=== PATIENT | male | born 1985 | race Caucasian/White ===

== ENCOUNTER 2022-09-18 11:42 | Outpatient (CLI) | payer MEDICAID, SELFPAY | END 2022-09-18 11:43 | disposition home or self-care (01) | LOC: AMB 09-26 03:55 | PROVIDERS: Visit Provider Emergency Medicine | DX: J68.9 Unspecified respiratory condition due to chemicals, gases, fumes and vapors (principal) ==

== ENCOUNTER 2022-11-20 11:25 | Outpatient (CLI) | payer MEDICAID, SELFPAY | END 2022-11-20 11:26 | disposition home or self-care (01) | LOC: AMB 11-21 03:03 | PROVIDERS: Visit Provider Family Medicine | DX: G40.909 Epilepsy, unspecified, not intractable, without status epilepticus (principal) | CPT/HCPCS: A0425; A0427 ==

== ENCOUNTER 2022-11-20 11:44 | Emergency (ER) | payer MEDICAID, SELFPAY ==
[2022-11-20 11:54] VITALS: BP 115/81; PULSE 96; TEMP 37; O2SAT 97; BMI 24.9
--- NOTE | 2022-11-20 12:00 | ED_ITS ---
HPI - Seizure General Time Seen by Provider: 12:00 Date Seen: 11/20/22 Chief Complaint: Seizure Stated Complaint: Possible seizure Time Seen by Provider: 11/20/22 12:00 Source: patient, EMS and RN notes reviewed Mode of arrival: EMS Limitations: no limitations History of Present Illness HPI Narrative: Patient is a 37-year-old male brought in by ambulance for auras, prodromal seizure. He did not actually have a seizure. He went biking this morning for about an hour and then went for a walk. He last took Keppra on Monday, has been out of it since Monday. He has a known seizure disorder, has taking Keppra in the past. He states that he was in [facility] 3 days this past week because he missed a court date on Monday. He turned himself in on Monday, they gave him a 3 day supply of Keppra. He was released and Monday was the last of that supply. He states he was at [facility] it is in in a coma for 10 days and Keppra was stopped then? ? He has not been ill with anything. He did not actually have a seizure. He started noting halos and foggy vision which is an aura for him. He also gets a metallic taste which he had. He is not having those now. He called EMS when he had the aura. He did not get any medication from EMS per his report. MD complaint: feels seizure coming on Trauma: No Seizure History: Yes Related Data Home Medications Medication Instructions Recorded Confirmed diazepam 5 mg/mL oral concentrate 50 mg PO PRN 11/20/22 11/20/22 (Diazepam Intensol) Previous Rx's Medication Instructions Recorded levetiracetam 1,000 mg tablet 1,000 mg PO BID #60 tabs 11/20/22 (Keppra) Allergies Allergy/AdvReac Type Severity Reaction Status Date / Time clindamycin Allergy Unknown Verified 11/20/22 11:58 Review of Systems Status of ROS: Reports: 6 or more systems reviewed and unremarkable except as noted in History and below Exam Const: Vital Signs, click to edit/add: Vital Signs - 24 hr 11/20/22 11:54 Temperature 98.6 F Pulse Rate [Pulse Oximeter] 96 Blood Pressure [Ri ght Upper Arm] 115/81 Pulse Oximetry 97 Oxygen Delivery Me thod Room Air Documenting provider has reviewed patient's vital signs: yes Common normals: no apparent distress, average body habitus, oriented x3, no limitations, healthy appearing and alert General appearance: cooperative, comfortable, well kempt and well developed HENMT: Common normals: normocephalic, head/scalp atraumatic, hearing grossly normal bilaterally, external nose normal, nasal mucous membranes and turbinates normal, moist oral mucous membranes, oropharynx normal and dentition normal Head and scalp: normocephalic and atraumatic Nose: external nose normal and nasal mucous membranes and turbinates normal Eye: Common normals: PERRL, EOMs intact bilaterally, conjunctivae normal and no scleral icterus Conjunctiva: conjunctiva(e) normal Pupil: PERRL Neck & C-Spine: Common normals: full ROM, no lymphadenopathy, supple, no meningeal signs, no JVD and thyroid normal Thyroid: thyroid normal Resp: Common normals: normal respiratory effort, no retractions, no use of accessory muscles and clear to auscultation bilaterally Auscultation: clear to auscultation bilaterally Cardio: Common normals: no JVD, regular rate, regular rhythm, S1 normal heart sound, S2 normal heart sound, no gallops, no clicks and no murmurs Rate: regular rate Rhythm: regular rhythm Heart sounds: S1 normal and S2 normal GI: Common normals: Normal to inspection, nondistended, normoactive bowel sounds present, soft to palpation, non-tender, no hepatosplenomegaly and no masses Palpation: soft and no hepatosplenomegaly Extremity: Common normals: no pedal edema Neuro: Dundas Coma Scale: document GCS findings Dundas coma scale eye opening: Spontaneous (4) Dundas coma scale verbal response: Orientated (5) [place]undas coma scale motor response: Obey commands (6) Jessica coma scale total score: 15 Common normals: oriented x3, CN's II-XII intact bilaterally, moves all extremities, no focal motor deficits and no sensory deficits noted Sensorium/orientation: alert Meningeal signs: no meningeal signs Speech: speech normal Psych: Appearance: well kempt Course Course Hospital Course: We will establish IV if EMS has not done so., check basic labs. I will talk to Neurology regarding this patient. Seems a bit unclear why he would not still be on Keppra if he was hospitalized at [facility] for seizures. Will talk to them about possibly doing a IV loading dose of Keppra for this patient and getting him a prescription if that is what they recommend. His outpatient neurology is through [facility]. Reevaluation(s) Reevaluation #1: Reviewed with Rc that we have confirmed he has had no medication feels at [facility] for quite a long time. The last was Emtriva and Ticivay last year per [facility]. There has been no Keppra filled. Rc states he has actually been in [facility] for 14 months. I do know that I some in December of 2021. He is aware he needs to be on the antiviral, admits that he needs to start taking better care of himself. Time: 13:02 Consultations Consultation #1: Had a [address] Ybarra, Neurology at [facility]. He states that patient has not seen [facility] since 2019. His Keppra dosing is 1000 mg b.i.d.. He was at [address] ER October 07 and October 10. This was for seizure disorder. He was told to take his Keppra. He is on no hospitalizations and no long-term stays. Only ER visits. He did recommend doing an IV load of 2000 mg of Keppra. Time: 12:21 Vital Signs Vital signs: Initial Vital Signs Temperature 98.6 F 11/20/22 11:54 Temperature Source Temporal Artery Scan 11/20/22 11:54 Pulse Rate 96 11/20/22 11:54 Blood Pressure 115/81 11/20/22 11:54 Blood Pressure Mean 92 11/20/22 11:54 Blood Pressure Position Supine 11/20/22 11:54 Pulse Oximetry 97 11/20/22 11:54 Oxygen Delivery Method Room Air 11/20/22 11:54 Vital Signs Temperature 98.6 F 11/20/22 11:54 Pulse Rate 96 11/20/22 11:54 Blood Pressure 115/81 11/20/22 11:54 Pulse Oximetry 97 11/20/22 11:54 Oxygen Delivery Method Room Air 11/20/22 11:54 Temperature 98.6 F 11/20/22 11:54 Pulse Rate 96 11/20/22 11:54 Blood Pressure 115/81 11/20/22 11:54 Pulse Oximetry 97 11/20/22 11:54 Oxygen Delivery Method Room Air 11/20/22 11:54 MDM - Seizure Lab Data Labs: Lab Results 11/20/22 Range/Units 12:06 WBC 8.36 (4.50-11.00) K/uL RBC 4.83 (4.30-5.90) m/uL Hgb 15.2 (13.5-17.5) gm/dL Hct 44.8 (37.0-53.0) % MCV 93 (80-100) fL MCH 32 (26-34) pg MCHC 34 (32-36) gm/dL RDW Coeff of Nilson 12.8 (11.5-15.5) % Plt Count 311 (140-440) K/uL Neut % (Auto) 65.6 (42.0-72.0) % Lymph % (Auto) 26.4 (20-44) % [place] % (Auto) 7.3 (0.0-11.0) % Eos % (Auto) 0.2 (0.0-7.0) % Baso % (Auto) 0.5 (0.0-3.0) % Neut # (Auto) 5.48 (1.7-7.0) K/uL Lymph # (Auto) 2.21 (0.90-2.90) K/uL [place] # (Auto) 0.60 (0.00-0.90) K/UL Eos # (Auto) 0.02 (0.00-0.50) K/uL Baso # (Auto) 0.04 (0.00-0.30) K/uL Sodium 137 (135-149) mmol/L Potassium 3.8 (3.6-5.1) mmol/L Chloride 102 (96-114) mmol/L Carbon Dioxide 27 (20-32) mmol/L BUN 23 (5-24) mg/dL Creatinine 0.8 (0.5-1.5) mg/dL Estimated Creat Clear 114.09 Estimated GFR 117 ml/min Glucose 105 (60-115) mg/dL Calcium 9.4 (8.4-10.6) mg/dL Total Bilirubin 0.6 (0.1-1.5) mg/dL AST 23 (12-35) U/L ALT 18 (4-50) U/L Alkaline Phosphatase 64 (40-150) U/L Total Protein 7.7 (6.0-8.3) g/dL Albumin 4.8 (3.3-5.0) g/dL Critical Care Time Critical Care Time Critical Care Time: No Discharge Plan Discharge Clinical Impression: Seizure disorder Patient Disposition: Home, Self-Care Condition: Stable Instructions: Epilepsy (ED) Additional Instructions: Take Keppra 1000 mg twice a day. It is imperative for you to do this to keep herself safe from seizures. Need to follow seizure precautions. You are not able to drive his you have not been on appropriate anti seizure medicine. Need to see your neurologist at [facility], you have not been seen since 2019. Please call to get a follow-up appointment. Prescriptions: New levetiracetam [Keppra] 1,000 mg tablet 1,000 mg PO BID Qty: 60 1RF No Action diazepam [Diazepam Intensol] 5 mg/mL concentrate 50 mg PO PRN Follow Up/Referrals: Provider,Not a Local [Primary Care Provider] - Stand Alone Forms: [facility] Info Instructions
[2022-11-20 12:13] LABS: Basophils Absolute Auto 0.04 K/uL (0.00-0.30); Basophils Percent Auto 0.5 % (0.0-3.0); Eosinophils Absolute Auto 0.02 K/uL (0.00-0.50); Eosinophils Percent Auto 0.2 % (0.0-7.0); Hematocrit 44.8 % (37.0-53.0); Hemoglobin* 15.2 gm/dL (13.5-17.5); Lymphocytes Absolute Auto 2.21 K/uL (0.90-2.90); Lymphocytes Percent Auto 26.4 % (20-44); Mean Corpuscular HGB Conc 34 gm/dL (32-36); Mean Corpuscular Hemoglobin 32 pg (26-34); Mean Corpuscular Volume 93 fL (80-100); Monocytes Percent Auto 7.3 % (0.0-11.0); Neutrophils Absolute Auto 5.48 K/uL (1.7-7.0); Neutrophils Percent Auto 65.6 % (42.0-72.0); Platelet Count* 311 K/uL (140-440); RDW Coefficient of Variation % 12.8 % (11.5-15.5); Red Blood Count 4.83 m/uL (4.30-5.90); Slide Review Reflex No; White Blood Count* 8.36 K/uL (4.50-11.00)
[2022-11-20 12:27] LABS: Albumin* 4.8 g/dL (3.3-5.0); Chloride* 102 mmol/L (96-114); Potassium* 3.8 mmol/L (3.6-5.1); Sodium* 137 mmol/L (135-149)
[2022-11-20 12:29] LABS: Creatinine* 0.8 mg/dL (0.5-1.5); Est. Creatinine Clearance* 114.09; Estimated Glomerular Filt Rate 117 ml/min
[2022-11-20 12:30] LABS: Alanine Aminotransferase* 18 U/L (4-50); Alkaline Phosphatase* 64 U/L (40-150); Aspartate Amino Transferase* 23 U/L (12-35); Bilirubin Total* 0.6 mg/dL (0.1-1.5); Blood Urea Nitrogen* 23 mg/dL (5-24); Calcium* 9.4 mg/dL (8.4-10.6); Carbon Dioxide* 27 mmol/L (20-32); Glucose* 105 mg/dL (60-115); Total Protein* 7.7 g/dL (6.0-8.3)
--- NOTE | 2022-11-20 13:22 | ED.NURSE ---
Pt was given discharge paperwork and reviewed in depth, instructions on where to pickle sorter his keppra script and how to take Keppra. Pt is calling his for a ride from the hospital. Pt is appropriately dressed for the weather.
== END 2022-11-20 13:32 | disposition home or self-care (01) ==
PROVIDERS: Emergency Provider Family Medicine
DX: G40.409 Other generalized epilepsy and epileptic syndromes, not intractable, without status epilepticus (principal)
CPT/HCPCS: 36415; 80053; 85025; 96374; 99284; J1953

== ENCOUNTER 2024-03-17 16:03 | Outpatient (CLI) | payer MEDICAID, SELFPAY | END 2024-03-17 16:04 | disposition home or self-care (01) | LOC: AMB 03-18 17:21 | PROVIDERS: Visit Provider Family Medicine | DX: R56.9 Unspecified convulsions (principal) | CPT/HCPCS: A0425; A0427 ==